=== PATIENT | female | born 1985 | race Caucasian/White ===

== ENCOUNTER 2020-05-23 19:13 | Emergency (ER) | payer MEDICAID, SELFPAY ==
[2020-05-23 19:37] VITALS: BP 155/98; PULSE 93; RESP 14; TEMP 37.3; O2SAT 97; BMI 33.9
[2020-05-23 19:52] LABS: Basophils % 0.4 %; Eosinophils # 0.2 10^3/uL (0.0-0.8); Eosinophils % 2.4 %; Hematocrit 41.9 % (37.0-47.0); Hemoglobin 13.7 g/dL (11.5-15.3); Lymphocytes # 2.2 10^3/uL (0.8-4.8); Lymphocytes % 30.5 %; Mean Corpuscular HGB Conc 32.7 g/dL (30.0-36.0); Mean Corpuscular Hemoglobin 29.5 pg (28.0-34.0); Mean Corpuscular Volume 90.1 fL (81-99); Monocytes # 0.6 10^3/uL (0.2-0.9); Monocytes % 8.7 %; Neutrophils # 4.13 10^3/uL (1.8-7.7); Neutrophils % 57.9 %; Nucleated Red Blood Cells % 0 %; Platelet Count 229 10^3/cmm (130-400); Red Blood Count 4.65 10^6/uL (4.1-5.3); Red Cell Distribution Width 12.7 % (12.1-15.1); White Blood Count 7.1 10^3/uL (4.0-10.0)
[2020-05-23 20:24] LABS: HCG, Serum Qual Negative (Negative)
[2020-05-23 20:25] LABS: Alanine Aminotransferase 25 U/L (0-33); Albumin Level 4.6 g/dL (3.5-5.2); Alkaline Phosphatase 77 IU/L (35-105); Aspartate Amino Transferase 22 U/L (0-32); Blood Urea Nitrogen 10 mg/dL (6-20); Calcium 9.5 mg/dL (8.5-10.5); Carbon Dioxide 27 mmol/L (22-29); Chloride 102 mmol/L (98-107); Globulin 3.1 g/dL (1.3-4.6); Glomerular Filtration Rate 82.1 mL/min (90-130); Glucose 108 mg/dL (65-115); Lipase 41 U/L (13-60); Osmolality Calculated 286 mOsm/kg (285-295); Sodium 138 mmol/L (136-145); Total Bilirubin 0.2 mg/dL (0.15-1.2); Total Protein 7.7 g/dL (6.6-8.7)
--- NOTE | 2020-05-23 21:32 | ED_ITS ---
HPI - Abdominal Pain General: Chief Complaint: Abdominal Pain Stated Complaint: lower r abd pain Time Seen by Provider: 05/23/20 21:32 Source: patient Mode of arrival: ambulatory Limitations: no limitations History of Present Illness: HPI narrative: Patient comes in today for complaints of right lower quadrant abdominal pain for the last 4 days. Patient denies any fever. Patient has reported some diarrhea. Patient appears well. Patient appears no acute distress. Patient has had a tubal ligation but no other surgeries. Review of Systems General: Reports: 10 or more systems reviewed and unremarkable except in HPI and below GI: Reports: abdominal pain Physical Exam Const: COMMON NORMALS: no acute distress and patient oriented x3 GENERAL APPEARANCE: cooperative HENMT: COMMON NORMALS: normocephalic and Normal external nose present HEAD & SCALP: normal to inspection and normocephalic NOSE: Normal external nose present MOUTH: Normal oral and palatal mucosa present THROAT: posterior oropharynx normal Eye: GENERAL EYE: appearance normal, both eyes and all related structures Neck/C-Spine: COMMON NORMALS: full ROM Chest: COMMONS NORMALS: normal inspection of the chest Resp: COMMON NORMALS: normal respiratory effort EFFORT & INSPECTION: Yes able to speak in complete sentences Cardio: COMMON NORMALS: regular rate and regular rhythm RATE: regular rate RHYTHM: regular rhythm GI: INSPECTION: Yes normal to inspection AUSCULTATION: Yes normoactive bowel sounds PALPATION: Yes Tenderness to palpation present (GI) Details: RLQ : COMMON NORMALS: Yes no CVA tenderness BLADDER/KIDNEY EXAM: Yes no CVA tenderness Back/Pelvis: COMMON NORMALS: no CVA tenderness and thoracic and lumbar spine normal to inspection Extremity: COMMON NORMALS: normal to inspection Neuro: COMMON NORMALS: patient oriented x3 and moves all extremities Psych: COMMON NORMALS: mental status grossly normal and cooperative Skin: COMMON NORMALS: no rashes or lesions noted GENERAL SKIN EXAM: no rashes or lesions noted Course Vital Signs: Vital signs: Vital Signs Temperature 99.1 F 05/23/20 19:37 Pulse Rate 81 05/23/20 22:32 Respiratory Rate 16 05/23/20 22:32 Blood Pressure 143/99 05/23/20 22:32 Pulse Oximetry 97 05/23/20 22:32 MDM - Abdominal Pain MDM Narrative: Medical decision making narrative: Patient comes in with right lower quadrant abdominal pain. On exam patient has some tenderness in the right lower quadrant with palpation. Some McBurney's point tenderness is noted. Bowel sounds are present. Vital signs are normal. Differential diagnosis includes but not limited to appendicitis, ovarian cyst, renal calculi. Laboratory values were unremarkable. Urinalysis was clear. CT scan of the abdomen pelvis noted a normal appendix and no other signs of abnormality. Reviewed exam with patient with recommendations for follow-up and treatment of abdominal pain. Patient reported understanding agreed to plan. Lab Data: Labs: Lab Results 05/23/20 05/23/20 05/23/20 Range/Units 19:44 19:44 19:44 WBC 7.1 (4.0-10.0) 10^3/ uL RBC 4.65 (4.1-5.3) 10^6/u L Hgb 13.7 (11.5-15.3) g/dL Hct 41.9 (37.0-47.0) % MCV 90.1 (81-99) fL MCH 29.5 (28.0-34.0) pg MCHC 32.7 (30.0-36.0) g/dL RDW 12.7 (12.1-15.1) % Plt Count 229 (130-400) 10^3/c mm MPV 11.0 H (7.4-10.4) fL Neut % (Auto) 57.9 % Lymph % (Auto) 30.5 % Towner % (Auto) 8.7 % Eos % (Auto) 2.4 % Baso % (Auto) 0.4 % Neut # (Auto) 4.13 (1.8-7.7) 10^3/u L Lymph # (Auto) 2.2 (0.8-4.8) 10^3/u L Towner # (Auto) 0.6 (0.2-0.9) 10^3/u L Eos # (Auto) 0.2 (0.0-0.8) 10^3/u L Baso # (Auto) 0.0 (0.0-0.1) 10^3/u L Nucleated RBC % (a uto) 0 % Nucleated RBCs # 0.0 /100WBC Sodium 138 (136-145) mmol/L Potassium 4.0 (3.5-5.1) mmol/L Chloride 102 (98-107) mmol/L Carbon Dioxide 27 (22-29) mmol/L Anion Gap 13.0 (5-19) BUN 10 (6-20) mg/dL Creatinine 0.8 (0.5-0.9) mg/dL GFR Calculation 82.1 L (90-130) mL/min Glucose 108 (65-115) mg/dL Calculated Osmolal ity 286 (285-295) mOsm/k g Calcium 9.5 (8.5-10.5) mg/dL Total Bilirubin 0.2 (0.15-1.2) mg/dL AST 22 (0-32) U/L ALT 25 (0-33) U/L Alkaline Phosphata se 77 (35-105) IU/L Total Protein 7.7 (6.6-8.7) g/dL Albumin 4.6 (3.5-5.2) g/dL Globulin 3.1 (1.3-4.6) g/dL Lipase 41 (13-60) U/L HCG, Qual Negative (Negative) Urine Color (Yellow) Urine Appearance (CLEAR) Urine pH (5-7) Ur Specific Gravit y (1.005-1.030) Urine Protein (Negative) Urine Glucose (UA) (Normal) Urine Ketones (Negative) Urine Blood (Negative) Urine Nitrate (Negative) Urine Bilirubin (Negative) Urine Urobilinogen (Negative) mg/dL Ur Leukocyte Angelique ase (Negative) 05/23/20 Range/Units 22:36 WBC (4.0-10.0) 10^3/ uL RBC (4.1-5.3) 10^6/u L Hgb (11.5-15.3) g/dL Hct (37.0-47.0) % MCV (81-99) fL MCH (28.0-34.0) pg MCHC (30.0-36.0) g/dL RDW (12.1-15.1) % Plt Count (130-400) 10^3/c mm MPV (7.4-10.4) fL Neut % (Auto) % Lymph % (Auto) % Towner % (Auto) % Eos % (Auto) % Baso % (Auto) % Neut # (Auto) (1.8-7.7) 10^3/u L Lymph # (Auto) (0.8-4.8) 10^3/u L Towner # (Auto) (0.2-0.9) 10^3/u L Eos # (Auto) (0.0-0.8) 10^3/u L Baso # (Auto) (0.0-0.1) 10^3/u L Nucleated RBC % (a uto) % Nucleated RBCs # /100WBC Sodium (136-145) mmol/L Potassium (3.5-5.1) mmol/L Chloride (98-107) mmol/L Carbon Dioxide (22-29) mmol/L Anion Gap (5-19) BUN (6-20) mg/dL Creatinine (0.5-0.9) mg/dL GFR Calculation (90-130) mL/min Glucose (65-115) mg/dL Calculated Osmolal ity (285-295) mOsm/k g Calcium (8.5-10.5) mg/dL Total Bilirubin (0.15-1.2) mg/dL AST (0-32) U/L ALT (0-33) U/L Alkaline Phosphata se (35-105) IU/L Total Protein (6.6-8.7) g/dL Albumin (3.5-5.2) g/dL Globulin (1.3-4.6) g/dL Lipase (13-60) U/L HCG, Qual (Negative) Urine Color Yellow (Yellow) Urine Appearance Clear (CLEAR) Urine pH 5 (5-7) Ur Specific Gravit y 1.025 (1.005-1.030) Urine Protein Neg (Negative) Urine Glucose (UA) Norm (Normal) Urine Ketones Negative (Negative) Urine Blood Neg (Negative) Urine Nitrate Negative (Negative) Urine Bilirubin Neg (Negative) Urine Urobilinogen 1 H (Negative) mg/dL Ur Leukocyte Angelique ase Negative (Negative) Discharge Plan Discharge Patient Disposition: Home Clinical Impression: Abdominal pain Qualifiers: Abdominal location: right lower quadrant Qualified Code(s): R10.31 - Right lower quadrant pain Condition: Stable Discharge Orders: Discharge Order (Routine); Ordered 05/23/20 Ordered By: Farhat Schulz Referrals: Rosalba Patterson FNP [Primary Care Provider] - Discharge Diet: Usual diet Discharge Activity: Increase activity as tolerated Patient Instructions: Abdominal Pain (ED) Activity Restrictions/Additional Instructions: Drink plenty of fluids. Light diet. Avoid spicy, greasy, and acidic foods. Activity as tolerated. Monitor for fever or blood in vomit or stool. Follow-up with primary care for further evaluation and treatment. Return to the emergency department for new concerns. Coding Level of Care Code ED Certified Pathology Assistant for Eloina Hannon Exam Comprehensive
--- NOTE | 2020-05-23 21:38 | PC.NURSE ---
AT PT BEDSIDE REPORT RECEIVED FROM [facility]. PT IS BEING RESTRAINED. PT WORDS ARE INCOMPREHENSIBLE.
--- NOTE | 2020-05-23 21:41 | PC.NURSE ---
VO TO ADM 150 MG OF KETAMINE VIA IM PER PROVIDER ZAID WITH READ BACK.
[2020-05-23 22:32] VITALS: BP 143/99; PULSE 81; RESP 16; O2SAT 97
--- NOTE | 2020-05-23 22:32 | CTR_ITS ---
PROCEDURE INFORMATION: Exam: CT Abdomen And Pelvis With Contrast Exam date and time: 05/23/2020 10:52 PM Age: 35 years old Clinical indication: Other: Diarrhea; Abdominal pain; Localized; Right lower quadrant (rlq); Additional info: Rlq pain TECHNIQUE: Imaging protocol: Computed tomography of the abdomen and pelvis with intravenous contrast. Radiation optimization: All CT scans at this facility use at least one of these dose optimization techniques: automated exposure control; mA and/or kV adjustment per patient size (includes targeted exams where dose is matched to clinical indication); or iterative reconstruction. Contrast material: OMNI 300; Contrast volume: 95 ml; Contrast route: INTRAVENOUS (IV); COMPARISON: CT abdomen pelvis w con* [id number] 07/17/2019 12:42 PM RADIATION DOSE METRICS: Total DLP (mGy-cm): 1382.41 FINDINGS: Lungs: The lung bases are clear. Liver: Unremarkable. Gallbladder and bile ducts: No visible gallstones by CT. Ultrasound would be more sensitive for detecting gallstones, if clinically needed. No biliary tree dilation. Pancreas: Unremarkable. Spleen: Unremarkable. Adrenals: Unremarkable. Kidneys and ureters: Suspect a very small right intrarenal calculus. No significant hydronephrosis of either kidney. No visible ureteral calculus. No perinephric fluid. The kidneys enhance homogeneously. 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 Most of the small bowel is in the right abdomen, and the 3rd portion of the duodenum does not cross the midline into the left upper quadrant. The ascending colon is in the midline, and the cecum is in the left lower quadrant. There are no CT findings to strongly suggest diverticulitis or colitis. Negative CT does not entirely exclude colitis, so follow-up may be helpful, as clinically directed. Appendix: The appendix is visualized and appears normal. The appendix is in the left lower quadrant due to the small bowel malrotation. Intraperitoneal space: No free air, ascites, or bowel distention. Vasculature: No evidence for abdominal aortic aneurysm. Lymph nodes: No retroperitoneal adenopathy. Urinary bladder: Possibly some mild diffuse urinary bladder wall thickening. Evaluation is limited, as the bladder is almost empty. While nonspecific, this could indicate evidence for cystitis. Please correlate clinically. Reproductive: Essentially unremarkable for age. Bones/joints: No significant acute finding. Soft tissues: Very small umbilical hernia, containing only fat. CT/CT abdomen pelvis w con* [id number] IMPRESSION: 1. Normal appendix. 2. Evidence for congenital small bowel malrotation, see above. 3. No free air or bowel distention. No evidence for bowel obstruction. 4. No CT findings to strongly suggest diverticulitis or colitis. 5. Possible urinary bladder wall thickening, see above. 6. Other findings discussed above. Radiation Dose CTDIVOL = (mGy): DLP = 1382.41 (mGy-cm)
--- NOTE | 2020-05-23 22:49 | PC.NURSE ---
patient to CT
[2020-05-23] MEDS: iohexol 300 mg/mL 100 mL Btl IV (22:56)
[2020-05-23 22:59] LABS: Add Urine Microscopic? NO
[2020-05-23 23:03] LABS: Bilirubin Urine Neg (Negative); Blood Urine Neg (Negative); Glucose Urine UA Norm (Normal); Ketones Urine Negative (Negative); Nitrate Urine Negative (Negative); Protein Urine Neg (Negative); Specific Gravity, Urine 1.025 (1.005-1.030); Urine Appearance Clear (CLEAR); Urine Color Yellow (Yellow); pH Urine 5 (5-7)
[2020-05-23 23:04] LABS: Leukocyte Esterase Urine Negative (Negative); Urobilinogen Urine 1 mg/dL (Negative)
[2020-05-24 00:06] VITALS: BP 118/88; PULSE 81; O2SAT 97
[2020-05-24 00:14] VITALS: BP 118/88; PULSE 74; O2SAT 93
== END 2020-05-24 00:16 | disposition home or self-care (01) ==
PROVIDERS: Emergency Provider Nurse Practitioner Family; PCP Nurse Practitioner
DX: R10.31 Right lower quadrant pain (principal)
CPT/HCPCS: 12345; 36415; 74177; 80053; 81003; 83690; 84703; 85025; 99283; Q9967

== ENCOUNTER 2020-09-07 10:01 | Emergency (ER) | payer BC, MEDICAID, SELFPAY ==
[2020-09-07 10:06] VITALS: BP 132/96; PULSE 80; RESP 18; TEMP 36.9; O2SAT 96; BMI 33.9
[2020-09-07 10:10] VITALS: BP 124/87; PULSE 76; RESP 18; O2SAT 96
--- NOTE | 2020-09-07 10:18 | ED_ITS ---
HPI - General Adult General: Chief complaint: General Medical Stated complaint: SEVERE LOWER AB PAIN, VAGINAL BLEEDING/DISCHARGE Time Seen by Provider: 09/07/20 10:07 History of Present Illness: HPI narrative: 35-year-old female patient presents to the emergency department with lower pelvic pain and vaginal pain x 2 weeks. She reports clear vaginal discharge for several weeks. Reports last menstrual period was approximately 2 weeks ago, was heavy then stopped, lasted 3 days. She reports history of tubal ligation, denies fever chills nausea vomiting. She reports 5 years since last Pap smear, does not have a primary care provider, did not take anything for pain prior to arrival. States was at work at the onset of occurrence and was referred to the emergency department for further evaluation. G 4 P 4 L 4 Reports pain reproduced during intercourse. Onset (ago): week(s) (2) Location: genitals Radiation: back Severity: moderate Quality: aching Pain Consistency: constant Associated symptoms: Reports no associated symptoms; Deny chest pain, diaphoresis, dyspnea, headache(s), malaise, nausea, rash, palpitations or vomiting Treatments prior to arrival: none Review of Systems General: Reports: 10 or more systems reviewed and unremarkable except in HPI and below Const: Denies: fever(s), chills, body aches, fatigue, malaise or diaphoresis Eyes: Denies: blurry vision or eye redness ENMT: Denies: throat pain, dental pain or disequilibrium Card: Denies: chest pain, palpitations or irregular heart rhythm Resp: Denies: dyspnea, productive cough, non-productive cough or wheezing GI: Denies: abdominal pain, nausea or vomiting : Reports: vaginal discharge, irregular period, metrorrhagia and pelvic pain; Denies: difficulty voiding, dysuria, urinary urgency, urinary incontinence, hematuria or vaginal dryness Musc: Reports: back pain (with pelvic pain); Denies: neck pain, joint pain or joint stiffness Skin/Breast: Denies: rash or pruritus Neuro: Denies: headache(s), weakness in extremities or behavioral changes Psych: Denies: anxiety or depression Kameron/Lymph: Denies: easy bruising Physical Exam Const: COMMON NORMALS: no acute distress, patient oriented x3, healthy appearing and alert GENERAL APPEARANCE: cooperative, comfortable and well hydrated HENMT: COMMON NORMALS: normocephalic, Normal external nose present and moist oral mucous membranes HEAD & SCALP: normocephalic NOSE: Normal external nose present Eye: COMMON NORMALS: Equal, round and reactive pupils present and EOMs intact bilaterally GENERAL EYE: appearance normal, both eyes and all related structures PUPIL: Yes Equal, round and reactive pupils present Neck/C-Spine: COMMON NORMALS: full ROM and no lymphadenopathy GENERAL: Yes normal visual inspection and Yes trachea midline CERVICAL SPINE: Yes cervical ROM normal Lymph: LYMPHATIC: no lymphadenopathy noted Chest: COMMONS NORMALS: normal inspection of the chest Resp: COMMON NORMALS: normal respiratory effort and clear to auscultation bilaterally AUSCULTATION: clear to auscultation bilaterally Cardio: COMMON NORMALS: regular rhythm, S1 normal heart sound present and S2 normal heart sound present RHYTHM: regular rhythm HEART SOUNDS: S1 normal heart sound present and S2 normal heart sound present GI: COMMON NORMALS: Soft to palpation and non-tender INSPECTION: Yes normal to inspection PALPATION: Yes Soft to palpation : COMMON NORMALS: Yes no CVA tenderness, Yes normal external appearance, Yes normal appearance of the vagina and Yes normal appearance of the cervix BLADDER/KIDNEY EXAM: Yes no CVA tenderness EXTERNAL FEMALE EXAM: Yes normal appearance of the urethra, No Inguinal lymphadenopathy, No externally tender and No external swelling SPECULUM EXAM - VAGINA: No laceration, No lesion, No vaginal bleeding, No swelling, Yes tenderness Lateral vaginal tenderness details: bilateral, No Vaginal polyp present, No Vaginal discharge present and No Vaginal ecchymosis SPECULUM EXAM - CERVIX: No Tissue present in the cervical os, No mucoid cervix, No Abnormal cervical discharge present and Yes Cervical tenderness present BIMANUAL EXAM - VAGINA & UTERUS: Yes cervical motion tenderness, Yes Cervical tenderness present, Yes uterine size normal, Yes Uterine tenderness bilaterally and Yes other (tenderness over the bladder) BIMANUAL EXAM - ADNEXA, OTHER: Yes normal OB/EXTERNAL & SPECULUM: No vaginal bleeding Back/Pelvis: COMMON NORMALS: no CVA tenderness, thoracic and lumbar spine normal to inspection, no thoracic nor lumbar tenderness, thoraco-lumbar ROM normal and straight leg raise negative bilaterally Extremity: COMMON NORMALS: normal to inspection and capillary refill normal Neuro: COMMON NORMALS: patient oriented x3 and no focal motor deficits SENSORIUM/ORIENTATION: Yes alert Psych: COMMON NORMALS: mental status grossly normal, Normal thought process present and cooperative ACTIVITY/MOTOR BEHAVIOR: Yes appropriate eye contact THOUGHT PROCESS: Normal thought process present Skin: COMMON NORMALS: no rashes or lesions noted and turgor normal GENERAL SKIN EXAM: no rashes or lesions noted and turgor normal Course Vital Signs: Vital signs: Vital Signs Temperature 97.6 F 09/07/20 11:35 Pulse Rate 71 09/07/20 11:35 Respiratory Rate 18 09/07/20 11:35 Blood Pressure 144/81 09/07/20 11:35 Pulse Oximetry 96 09/07/20 11:35 MDM - General Adult MDM Narrative: Medical decision making narrative: 35-year-old female patient presents to the emergency department with vaginal pain and lower pelvic pain. 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 Advised to return to the emergency department if she developed worsening/concerning symptoms; ibuprofen administered with improvement of pain. Lab Data: Labs: Lab Results 09/07/20 09/07/20 Range/Units 11:10 11:10 Urine Color Straw (Yellow) Urine Appearance Clear (CLEAR) Urine pH 7 (5-7) Ur Specific Gravit y 1.005 (1.005-1.030) Urine Protein Neg (Negative) Urine Glucose (UA) Norm (Normal) Urine Ketones Negative (Negative) Urine Blood 2+ H (Negative) Urine Nitrate Negative (Negative) Urine Bilirubin Neg (Negative) Urine Urobilinogen Norm (Negative) mg/dL Ur Leukocyte Angelique ase Negative (Negative) Urine RBC 5-10 H (0-2) /hpf Urine WBC None (0-5) /hpf Ur Squamous Epith Cells 0-4 H (0-5) /hpf Amorphous Sediment Not Reportable Urine Bacteria Trace (NONE) /hpf Urine HCG, Qual Negative (Negative) Discharge Plan Discharge Patient Disposition: Home Clinical Impression: Pelvic pain UTI (urinary tract infection) Qualifiers: Urinary tract infection type: acute cystitis Hematuria presence: without hematuria Qualified Code(s): N30.00 - Acute cystitis without hematuria Condition: Stable Prescriptions: New Macrodantin 100 mg capsule 100 mg PO BID 5 Days Qty: 10 RF: 0 IBU 800 mg tablet 800 mg PO TID PRN (Reason: pain) Qty: 30 RF: 0 Discharge Orders: Discharge ED (Routine); Ordered 09/07/20 Ordered By: Jaylyn Motta Referrals: Rosalba Patterson FNP [Primary Care Provider] - Discharge Diet: Advance as tolerated Discharge Activity: Limit activity as instructed Patient Instructions: Urinary Tract Infection in Women (ED), Pelvic Pain Activity Restrictions/Additional Instructions: take antibiotic until all gone, even if better social science manager will 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
[2020-09-07] MEDS: ibuprofen 800 mg tablet PO (11:12)
[2020-09-07 11:24] VITALS: BP 144/81; PULSE 79; RESP 18; O2SAT 96
[2020-09-07 11:35] VITALS: BP 144/81; PULSE 71; RESP 18; TEMP 36.4; O2SAT 96
[2020-09-07 11:49] LABS: Add Urine Microscopic? YES; Bilirubin Urine Neg (Negative); Blood Urine 2+ (Negative); Glucose Urine UA Norm (Normal); Ketones Urine Negative (Negative); Leukocyte Esterase Urine Negative (Negative); Nitrate Urine Negative (Negative); Protein Urine Neg (Negative); Specific Gravity, Urine 1.005 (1.005-1.030); Urine Appearance Clear (CLEAR); Urine Color Straw (Yellow); Urobilinogen Urine Norm (Negative); pH Urine 7 (5-7)
[2020-09-07 11:50] LABS: Add Urine Culture? No; Bacteria Urine TRACE /hpf; Squamous Epithelial Cell Urine 0-4 /hpf (0-5)
--- NOTE | 2020-09-07 15:43 | DCPLANNER ---
manager combination had message to schedule a follow up appointment for patient with [facility]. manager combination called the [facility], spoke with Lisa, gave clinic patients information. manager combination was told that patients information would be printed and reviewed. Clinic will call patient with appointment information.
--- NOTE | 2020-09-09 11:19 | DCPLANNER ---
Patient has a follow up appointment scheduled for Saturday, September 09, 2020 at 11:30 with [facility]. Clinic will call patient with appointment information.
--- NOTE | 2020-09-27 07:47 | DCPLANNER ---
Patient had a follow up appointment scheduled for 09.09.20 with [facility] - patient did attend appointment.
== END 2020-09-07 12:15 | disposition home or self-care (01) ==
PROVIDERS: Emergency Provider Nurse Practitioner Family; PCP Nurse Practitioner
DX: N30.00 Acute cystitis without hematuria (principal)
CPT/HCPCS: 12345; 81001; 81025; 87210; 87491; 87591; 87661; 99281; 99283

== ENCOUNTER → 2020-12-13 10:35 | Outpatient (BNVA) | payer BC, MEDICAID, SELFPAY | PROVIDERS: PCP Nurse Practitioner; Visit Provider Nurse Practitioner Women's Health | DX: Z01.419 Encounter for gynecological examination (general) (routine) without abnormal findings (principal); J30.2 Other seasonal allergic rhinitis; N92.6 Irregular menstruation, unspecified | CPT/HCPCS: 84439; 84443; 88175 ==

== ENCOUNTER 2021-10-11 23:23 | Emergency (ER) | payer BC, MEDICAID, SELFPAY ==
--- NOTE | 2021-10-11 23:26 | W.ED.ABDPA2 ---
HPI - Abdominal Pain General: Chief Complaint: Abdominal Pain Stated Complaint: RLQ ABD Time Seen by Provider: 10/11/21 23:26 History of Present Illness: 36-year-old female comes in today with complaints of right-sided abdominal pain. Patient reports she was seen last night and was evaluated for similar pain and discomfort at [facility]. CT scan was done at that time and did not see any signs of acute infection or renal stone. Patient reports pain is worsened throughout the day and she has radiating pain into the right lower abdomen now. Patient reports nausea and vomiting. Patient reports chills but no fever. Patient appears mildly unwell but not toxic. Patient appears in moderate pain. Patient is presently on menstrual cycle Associated Symptoms: Reports nausea Review of Systems General: Reports: 10 or more systems reviewed and unremarkable except in HPI and below GI: Reports: abdominal pain and nausea [facility] ED PFSH: Medical History (Updated 10/12/21 @ 00:42 by EFRAÍN Anderson) Kidney stone on right side No pertinent past medical history neghx: htn,dm,thyroid,dvt/pe [facility]CP[facility] Surgical History Hx of tubal ligation (2015) Family History Family/Other Colon cancer Maternal Uncle--dx age unknown Mother Diabetes Brother Diabetes Hypertension Father Heart disease Denies family history of Ovarian cancer Hypercholesteremia Breast cancer Uterine cancer Thyroid disease Stroke Social History Additional social history: Was a smoker about 15 years ago, smoked 1/2 PPD for 1 year. Denies any alcohol use. Denies any history of drug use. Physical Exam Const: COMMON NORMALS: alert HENMT: COMMON NORMALS: normocephalic HEAD & SCALP: normocephalic Neck/C-Spine: COMMON NORMALS: full ROM Resp: COMMON NORMALS: normal respiratory effort and clear to auscultation bilaterally AUSCULTATION: clear to auscultation bilaterally Cardio: COMMON NORMALS: regular rate and regular rhythm RATE: regular rate RHYTHM: regular rhythm GI: AUSCULTATION: Yes normoactive bowel sounds PALPATION: Yes Tenderness to palpation present (GI) Details: RUQ, No Guarding due to palpation present (GI), Yes Rebound tenderness present and Yes Other GI palpation findings present (distended, positive psoas sign) : BLADDER/KIDNEY EXAM: Yes CVA tenderness on the right Back/Pelvis: GENERAL BACK: Yes CVA tenderness Extremity: COMMON NORMALS: normal to inspection and full ROM Neuro: SENSORIUM/ORIENTATION: Yes alert Psych: COMMON NORMALS: cooperative Skin: COMMON NORMALS: no rashes or lesions noted GENERAL SKIN EXAM: no rashes or lesions noted Course Vital Signs: Vital signs: Vital Signs Temperature 98.7 F 10/11/21 23:28 Pulse Rate 82 10/11/21 23:28 Respiratory Rate 17 10/12/21 00:02 Blood Pressure 136/85 10/11/21 23:28 Pulse Oximetry 97 10/11/21 23:28 MDM - Abdominal Pain Medical Decision Making 36-year-old female comes in with nausea and vomiting and abdominal discomfort. Patient has been ill for the last 2 days. Patient was seen in the emergency department at [facility] yesterday and they believe that maybe she had a ovarian cyst. Patient reports pain has radiated around into her right lower quadrant and she is concerned for appendicitis. On exam abdomen is tender in the right upper quadrant and lower quadrant with some mild distention. Bowel sounds are hyperactive. Patient is reporting nausea. Differential diagnosis includes but not limited to appendicitis, gastroenteritis, cholecystitis. Laboratory values were unremarkable. Urinalysis had a large amount of red blood cells but patient was on her period at this time. CT scan of the abdomen pelvis with contrast showed no sign of abdominal infection or hydronephrosis suggesting renal stone. Patient was given 1 L of IV fluid, 4 mg of Zofran, and 2 mg of morphine with resolution of pain. Patient was able to tolerate oral fluids. I suspect patient probably has a viral syndrome causing her nausea and vomiting and abdominal pain. I recommended patient use Zofran for nausea and vomiting may use some hydrocodone for severe pain. Encourage plenty of fluids and follow-up with primary care in 2 to 3 days. Patient should return to the ER for worsening symptoms. Patient reported understanding of care plan and need for follow-up or return to the ER. Lab Data : 10/11/21 23:30 10/11/21 23:30 Labs/Radiology: Radiology Impressions Abdomen/Pelvis CT 10/11/21 23:31 IMPRESSION: 1. Negative for acute abdominopelvic pathology. 2. Congenital malrotation of the bowel. Laboratory Results WBC 7.3 10^3/uL (4.0-10.0) 10/11/21 23:30 RBC 4.55 10^6/uL (4.1-5.3) 10/11/21: Hgb 13.1 g/dL (11.5-15.3) 10/11/21: Hct 40.5 % (37.0-47.0) 10/11/21: MCV 89.0 fl (81-99) 10/11/21: MCH 28.8 pg (28.0-34.0) 10/11/21: MCHC 32.3 g/dL (30.0-36.0) 10/11/21: RDW 13.1 % (12.1-15.1) 10/11/21: Plt Count 271 10^3/cmm (130-400) 10/11/21: MPV 11.4 fL (7.4-10.4) H 10/11/21: Neut % (Auto) 51.7 % 10/11/21: Lymph % (Auto) 40.8 % 10/11/21: [place] % (Auto) 6.3 % 10/11/21: Eos % (Auto) 0.8 % 10/11/21: Baso % (Auto) 0.3 % 10/11/21: Neut # (Auto) 3.77 10^3/uL (1.8-7.7) 10/11/21: Lymph # (Auto) 3.0 10^3/uL (0.8-4.8) 10/11/21: [place] # (Auto) 0.5 10^3/uL (0.2-0.9) 10/11/21 23: Eos # (Auto) 0.1 10^3/uL (0.0-0.8) 10/11/21: Baso # (Auto) 0.0 10^3/uL (0.0-0.1) 10/11/21: Nucleated RBC % (auto) 0 % 10/11/21: Nucleated RBCs # 0.0 /100WBC 10/11/21: Sodium 141 mmol/L (136-145) 10/11/21: Potassium 3.6 mmol/L (3.5-5.1) 10/11/21: Chloride 103 mmol/L (98-107) 10/11/21: Carbon Dioxide 27 mmol/L (22-29) 10/11/21: Anion Gap 14.6 (5-19) 10/11/21: BUN 9 mg/dL (6-20) 10/11/21: Creatinine 0.9 mg/dL (0.5-0.9) 10/11/21 GFR Calculation 71.3 mL/min (90-130) L 10/11/21: Glucose 102 mg/dL (65-115) 10/11/21: Calculated Osmolality 291 mOsm/kg (285-295) 10/11/21: Calcium 9.8 mg/dL (8.5-10.5) 10/11/21: Total Bilirubin 0.3 mg/dL (0.15-1.2) 10/11/21: AST 14 U/L (0-32) 10/11/21: ALT 14 U/L (0-33) 10/11/21: Alkaline Phosphatase 71 IU/L (35-105) 10/11/21: Total Protein 7.5 g/dL (6.6-8.7) 10/11/21: Albumin 4.7 g/dL (3.5-5.2) 10/11/21: Globulin 2.8 g/dL (1.3-4.6) 10/11/21: Lipase 35 U/L (13-60) 10/11/21 23: HCG, Qual Negative (Negative) 10/11/21: Urine Color Yellow (Yellow) 10/12/21 00:06 Urine Appearance Clear (CLEAR) 10/12/21 00:06 Urine pH 5 (5-7) 10/12/21 00:06 Ur Specific [place] 1.015 (1.005-1.030) 10/12/21 00:06 Urine Protein Trace (Negative) 10/12/21 00:06 Urine Glucose (UA) Norm (Normal) 10/12/21 00:06 Urine Ketones Negative (Negative) 10/12/21 00:06 Urine Blood 3+ (Negative) H 10/12/21 00:06 Urine Nitrate Negative (Negative) 10/12/21 00:06 Urine Bilirubin Neg (Negative) 10/12/21 00:06 Urine Urobilinogen Norm mg/dL (Negative) 10/12/21 00:06 Ur Leukocyte Esterase Negative (Negative) 10/12/21 00:06 Urine RBC >100 /hpf (0-2) H 10/12/21 00:06 Urine WBC 0-4 /hpf (0-5) H 10/12/21 00:06 Ur Squamous Epith Cells 0-4 /hpf (0-5) H 10/12/21 00:06 Amorphous Sediment Not Reportable 10/12/21 00:06 Urine Bacteria Trace /hpf (NONE) 10/12/21 00:06 Urine Mucus 1+ /hpf 10/12/21 00:06 Discharge Plan Discharge Patient Disposition: Home Clinical Impression: Viral syndrome Abdominal pain Qualifiers: Abdominal location: right upper quadrant Qualified Code(s): R10.11 - Right upper quadrant pain Condition: Stable Prescriptions: New ondansetron 4 mg tablet,disintegrating 4 mg PO Q8H PRN (Reason: nausea and vomiting) Qty: 7 0RF hydrocodone-acetaminophen 5-325 mg tablet 1 tab PO Q8H PRN (Reason: pain (scale score 7-10)) Qty: 7 0RF No Action loratadine [Claritin] 10 mg tablet 10 mg PO DAILY PRN (Reason: allergy symptoms) Qty: 30 11RF Discharge Orders: Discharge ED (Routine); Ordered 10/12/21 Ordered By: Farhat Schulz Referrals: Chelsi Robertsno FNP [Primary Care Provider] - Discharge Diet: Advance as tolerated Discharge Activity: Increase activity as tolerated Patient Instructions: Abdominal Pain (ED), Opioid Safety Activity Restrictions/Additional Instructions: Start with a clear liquid diet. Drink plenty of water and fluids. Use ondansetron as needed for nausea. Monitor for fever greater than 100.4. Use acetaminophen to control pain, use hydrocodone for breakthrough pain. Follow-up with primary care in 3 days for recheck. Return to ER for worsening symptoms such as high fever, blood in vomit or stool, or uncontrolled vomiting. Coding Level of Care Code ED [employer] for [employer] F[employer] Exam Comprehensive
[2021-10-11 23:28] VITALS: BP 136/85; PULSE 82; RESP 18; TEMP 37.1; O2SAT 97; BMI 33.3
--- NOTE | 2021-10-11 23:31 | CTR_ITS ---
PROCEDURE INFORMATION: Exam: CT Abdomen And Pelvis With Contrast Exam date and time: 10/11/2021 11:31 PM Age: 36 years old Clinical indication: Abdominal pain; Rebound pain; Right lower quadrant (rlq); Prior surgery; Surgery date: 6+ months; Surgery type: Tubal ligation; Patient HX: Rlq pain x2 days with rebound tenderness; Additional info: Right abd pain, R/O abd infection TECHNIQUE: Imaging protocol: Computed tomography of the abdomen and pelvis with contrast. Radiation optimization: All CT scans at this facility use at least one of these dose optimization techniques: automated exposure control; mA and/or kV adjustment per patient size (includes targeted exams where dose is matched to clinical indication); or iterative reconstruction. Contrast material: OMNI 300; Contrast volume: 95 ml; Contrast route: INTRAVENOUS (IV); COMPARISON: CT abdomen pelvis w con* [id number] 05/23/2020 10:48 PM RADIATION DOSE METRICS: Total DLP (mGy-cm): 1998. FINDINGS: Liver: Normal. No mass. Gallbladder and bile ducts: Normal. No calcified stones. No ductal dilation. Pancreas: Normal. No ductal dilation. Spleen: Normal. No splenomegaly. Adrenal glands: Normal. No mass. Kidneys and ureters: Normal. No hydronephrosis. Stomach and bowel: Malrotation of the bowel. Duodenal jejunal junction does not cross midline. Small bowel in the right-side of the abdomen. Large bowel on the left side of the abdomen. No inflammatory bowel wall thickening. No evidence of obstruction or perforation. Appendix: Normal appendix. Intraperitoneal space: Unremarkable. No free air. No significant fluid collection. Vasculature: Unremarkable. No abdominal aortic aneurysm. Lymph nodes: Unremarkable. No enlarged lymph nodes. Urinary bladder: Unremarkable as visualized. Reproductive: Unremarkable as visualized. Bones/joints: Unremarkable. No acute fracture. Soft tissues: Unremarkable. CT/CT abdomen pelvis w con* [id number] IMPRESSION: 1. Negative for acute abdominopelvic pathology. 2. Congenital malrotation of the bowel.
[2021-10-11 23:40] LABS: Basophils % 0.3 %; Eosinophils # 0.1 10^3/uL (0.0-0.8); Eosinophils % 0.8 %; Hematocrit 40.5 % (37.0-47.0); Hemoglobin 13.1 g/dL (11.5-15.3); Lymphocytes % 40.8 %; Mean Corpuscular HGB Conc 32.3 g/dL (30.0-36.0); Mean Corpuscular Hemoglobin 28.8 pg (28.0-34.0); Mean Platelet Volume 11.4 fL (7.4-10.4); Monocytes # 0.5 10^3/uL (0.2-0.9); Monocytes % 6.3 %; Neutrophils # 3.77 10^3/uL (1.8-7.7); Neutrophils % 51.7 %; Nucleated Red Blood Cells % 0 %; Platelet Count 271 10^3/cmm (130-400); Red Blood Count 4.55 10^6/uL (4.1-5.3); Red Cell Distribution Width 13.1 % (12.1-15.1); White Blood Count 7.3 10^3/uL (4.0-10.0)
[2021-10-11 23:57] LABS: HCG, Serum Qual Negative (Negative)
[2021-10-12 00:02] VITALS: RESP 17
[2021-10-12] MEDS: ketorolac 30 mg/mL INJ 15 MG IVP (00:02)
[2021-10-12] MEDS: morphine 4 mg/mL SDV 1 mL 2 MG IVP (00:02)
[2021-10-12 00:06] LABS: Alanine Aminotransferase 14 U/L (0-33); Albumin Level 4.7 g/dL (3.5-5.2); Alkaline Phosphatase 71 IU/L (35-105); Anion Gap 14.6 (5-19); Aspartate Amino Transferase 14 U/L (0-32); Blood Urea Nitrogen 9 mg/dL (6-20); Calcium 9.8 mg/dL (8.5-10.5); Carbon Dioxide 27 mmol/L (22-29); Chloride 103 mmol/L (98-107); Globulin 2.8 g/dL (1.3-4.6); Glomerular Filtration Rate 71.3 mL/min (90-130); Glucose 102 mg/dL (65-115); Lipase 35 U/L (13-60); Osmolality Calculated 291 mOsm/kg (285-295); Potassium 3.6 mmol/L (3.5-5.1); Sodium 141 mmol/L (136-145); Total Bilirubin 0.3 mg/dL (0.15-1.2); Total Protein 7.5 g/dL (6.6-8.7)
[2021-10-12 00:37] LABS: Add Urine Microscopic? YES; Bilirubin Urine Neg (Negative); Blood Urine 3+ (Negative); Glucose Urine UA Norm (Normal); Ketones Urine Negative (Negative); Leukocyte Esterase Urine Negative (Negative); Nitrate Urine Negative (Negative); Protein Urine Trace (Negative); Specific Gravity, Urine 1.015 (1.005-1.030); Urine Appearance Clear (CLEAR); Urine Color Yellow (Yellow); Urobilinogen Urine Norm (Negative); pH Urine 5 (5-7)
[2021-10-12 00:38] LABS: Add Urine Culture? Yes; Bacteria Urine TRACE /hpf; Mucus Urine 1+ /hpf; RBC Urine >100 /hpf (0-2); Squamous Epithelial Cell Urine 0-4 /hpf (0-5); WBC Urine 0-4 /hpf (0-5)
== END 2021-10-12 00:59 | disposition home or self-care (01) ==
PROVIDERS: Emergency Provider Nurse Practitioner Family; PCP Nurse Practitioner Family
DX: R10.11 Right upper quadrant pain (principal); B34.9 Viral infection, unspecified; Z87.891 Personal history of nicotine dependence
CPT/HCPCS: 74177; 80053; 81001; 83690; 84703; 85025; 87077; 87086; 87186; 96374; 96375; 99283; J1885; J2270; Q9967

== ENCOUNTER → 2021-10-25 08:13 | Outpatient (BNVA) | payer BC, MEDICAID, SELFPAY | PROVIDERS: PCP Nurse Practitioner Family; Visit Provider Psychiatry & Neurology Psychiatry | DX: F33.1 Major depressive disorder, recurrent, moderate (principal) | CPT/HCPCS: 99204 ==

== ENCOUNTER → 2021-12-20 09:59 | Outpatient (BNVA) | payer BC, MEDICAID, SELFPAY | PROVIDERS: PCP Nurse Practitioner Family; Visit Provider Psychiatry & Neurology Psychiatry | DX: F33.1 Major depressive disorder, recurrent, moderate (principal) | CPT/HCPCS: 99214 ==

== ENCOUNTER 2022-01-05 07:23 | Emergency (ER) | payer BC, MEDICAID, SELFPAY ==
[2022-01-05 07:44] VITALS: BP 125/94; PULSE 94; RESP 16; TEMP 36.8; O2SAT 97; BMI 32.5
--- NOTE | 2022-01-05 07:50 | PC.NURSE ---
Patient has medical history of asthma, bipolar, anxiety, and depression.
--- NOTE | 2022-01-05 07:54 | XR_ITS ---
WS: [id number] PORTABLE CHEST HISTORY: cough COMPARISON: 03/20/2019 Lungs are clear and well expanded. No pleural effusion or pneumothorax. Cardiac size: Normal. Mediastinum/Aorta: Normal mediastinum. No osseous abnormality seen. XR/XR chest 1V portable [id number] IMPRESSION: Unremarkable portable chest.
--- NOTE | 2022-01-05 07:55 | ED_ITS ---
Documented by User: GIANNA Thakur 01/05/22 11:01 HPI - General Adult General: Chief complaint: General Medical Stated complaint: Vomiting and head ache after being in the heat Time Seen by Provider: 01/05/22 07:35 History of Present Illness: Patient is a 36-year-old female comes to the ED with nausea and vomiting. Patient says her symptoms started last night. She reports having a cough that is dry and nonproductive along with body aches, headache and nausea and vomiting. 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 She feels dehydrated and very thirsty. Yesterday at work as a public relations officer and a couple people's houses they did not have AC and her car also did not have AC so she thinks she might of gotten overheated and that could be causing her symptoms. She was sweating a lot yesterday. Denies any fevers, ear pain, nasal congestion or drainage, sore throat, bladder or bowel symptoms. Associated symptoms: Reports headache(s), nausea and vomiting; Deny chest pain, dyspnea, rash or palpitations Review of Systems Const: Reports: body aches; Denies: fever(s), chills or fatigue Eyes: Denies: change in vision or eye discomfort ENMT: Denies: throat pain, odynophagia, nasal discharge or nasal congestion Card: Denies: chest pain, palpitations, edema, swelling of feet/ankles, dyspnea on exertion or orthopnea Resp: Reports: non-productive cough; Denies: dyspnea or productive cough GI: Reports: nausea and vomiting; Denies: abdominal pain, diarrhea, constipation or hematochezia : Denies: flank pain, dysuria or hematuria Musc: Denies: neck pain, back pain or extremity swelling Skin/Breast: Denies: rash or new lesions Neuro: Reports: headache(s); Denies: numbness in extremities or weakness in extremities PFS ED PFSH: Medical History Kidney stone on right side No pertinent past medical history neghx: htn,dm,thyroid,dvt/pe [facility] Surgical History Hx of tubal ligation (2014) Family History Family/Other Colon cancer Maternal Uncle--dx age unknown Mother Diabetes Brother Diabetes Hypertension Father Heart disease Denies family history of Ovarian cancer Hypercholesteremia Breast cancer Uterine cancer Thyroid disease Stroke Social History Smoking and tobacco status: former smoker Quit status (tobacco): has quit using tobacco Year quit tobacco: 16 Second hand smoke exposure: Yes Additional social history: Was a smoker about 15 years ago, smoked 1/2 PPD for 1 year. Denies any alcohol use. Denies any history of drug use. Physical Exam Const: COMMON NORMALS: patient oriented x3 and alert GENERAL APPEARANCE: cooperative and comfortable HENMT: COMMON NORMALS: normocephalic HEAD & SCALP: normocephalic MOUTH: Normal oral and palatal mucosa present THROAT: posterior oropharynx normal and uvula midline Neck/C-Spine: COMMON NORMALS: supple GENERAL: Yes normal visual inspection Resp: COMMON NORMALS: normal respiratory effort, No retractions, No use of accessory muscles and clear to auscultation bilaterally AUSCULTATION: clear to auscultation bilaterally Cardio: COMMON NORMALS: regular rate, regular rhythm, S1 normal heart sound present, S2 normal heart sound present, No gallops present (Cardio), No clicks present (Cardio), No murmurs present (Cardio) and Peripheral pulses 2+ throughout RATE: regular rate RHYTHM: regular rhythm HEART SOUNDS: S1 normal heart sound present and S2 normal heart sound present PERIPHERAL PULSES: Peripheral pulses 2+ throughout GI: COMMON NORMALS: Normal to inspection, nondistended, normoactive bowel s ounds present, Soft to palpation, non-tender and no masses PALPATION: Yes Soft to palpation : COMMON NORMALS: Yes no CVA tenderness BLADDER/KIDNEY EXAM: Yes no CVA tenderness Back/Pelvis: COMMON NORMALS: no CVA tenderness Extremity: COMMON NORMALS: normal to inspection Neuro: COMMON NORMALS: patient oriented x3 and moves all extremities SENSORIUM/ORIENTATION: Yes alert Skin: GENERAL SKIN EXAM: dry skin Course Vital Signs: Vital signs: Vital Signs Temperature 98.2 F 01/05/22 07:44 Pulse Rate 94 01/05/22 07:44 Respiratory Rate 16 01/05/22 07:44 Blood Pressure 125/94 05/13/22 07:44 Pulse Oximetry 97 01/05/22 07:44 MDM - General Adult Medical Decision Making Patient is a 36-year-old female comes to the ED with nausea vomiting and headache. 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 She thinks she got over heated and started developing symptoms of nausea vomiting with a headache last night. Vitals are stable. Exam is benign. Chest x-ray showed no acute findings. Labs were all unremarkable. COVID and influenza test are pending, but low suspicion for that being the cause. Patient was given 1 L of IV fluids and Zofran and Toradol and her symptoms improved greatly. She is able to keep p.o. fluids down here in the ED. Patient stable for discharge home diagnosed with heat exhaustion. She was sent home with a prescription for Zofran as needed for nausea. Told to follow- up with her PCP in the next week for reevaluation. Return ED precautions given. Patient understood agree with plan. Lab Data I reviewed the patient's lab results. : 01/05/22 08:33 01/05/22 08:33 Radiology Impressions Chest X-Ray 01/05/22 07:54 IMPRESSION: Unremarkable portable chest. Laboratory Results WBC 5.8 10^3/uL (4.0-10.0) 01/05/22 08:33 RBC 4.77 10^6/uL (4.1-5.3) 01/05/22 08:33 Hgb 13.9 g/dL (11.5-15.3) 01/05/22 08:33 Hct 42.0 % (37.0-47.0) 01/05/22 08:33 MCV 88.1 fl (81-99) 01/05/22 08:33 MCH 29.1 pg (28.0-34.0) 01/05/22 08:33 MCHC 33.1 g/dL (30.0-36.0) 01/05/22 08:33 RDW 13.0 % (12.1-15.1) 01/05/22 08:33 Plt Count 279 10^3/cmm (130-400) 01/05/22 08:33 MPV 10.9 fL (7.4-10.4) H 01/05/22 08:33 Neut % (Auto) 53.0 % 01/05/22 08:33 Lymph % (Auto) 38.5 % 01/05/22 08:33 Wright % (Auto) 7.6 % 01/05/22 08:33 Eos % (Auto) 0.2 % 01/05/22 08:33 Baso % (Auto) 0.5 % 01/05/22 08:33 Neut # (Auto) 3.07 10^3/uL (1.8-7.7) 01/05/22 08:33 Lymph # (Auto) 2.2 10^3/uL (0.8-4.8) 01/05/22 08:33 Wright # (Auto) 0.4 10^3/uL (0.2-0.9) 01/05/22 08:33 Eos # (Auto) 0.0 10^3/uL (0.0-0.8) 01/05/22 08:33 Baso # (Auto) 0.0 10^3/uL (0.0-0.1) 01/05/22 08:33 Nucleated RBC % (auto) 0 % 01/05/22 08:33 Nucleated RBCs # 0.0 /100WBC 01/05/22 08:33 Sodium 139 mmol/L (136-145) 01/05/22 08:33 Potassium 3.9 mmol/L (3.5-5.1) 01/05/22 08:33 Chloride 102 mmol/L (98-107) 01/05/22 08:33 Carbon Dioxide 27 mmol/L (22-29) 01/05/22 08:33 Anion Gap 13.9 (5-19) 01/05/22 08:33 BUN 9 mg/dL (6-20) 01/05/22 08:33 Creatinine 0.7 mg/dL (0.5-0.9) 01/05/22 08:33 GFR Calculation 95.2 mL/min (90-130) 01/05/22 08:33 Glucose 110 mg/dL (65-115) 01/05/22 08:33 Calculated Osmolality 287 mOsm/kg (285-295) 01/05/22 08:33 Calcium 9.8 mg/dL (8.5-10.5) 01/05/22 08:33 Total Bilirubin 0.4 mg/dL (0.15-1.2) 01/05/22 08:33 AST 15 U/L (0-32) 01/05/22 08:33 ALT 17 U/L (0-33) 01/05/22 08:33 Alkaline Phosphatase 76 IU/L (35-105) 01/05/22 08:33 Total Protein 8.0 g/dL (6.6-8.7) 01/05/22 08:33 Albumin 4.7 g/dL (3.5-5.2) 01/05/22 08:33 Globulin 3.3 g/dL (1.3-4.6) 01/05/22 08:33 Lipase 30 U/L (13-60) 01/05/22 08:33 HCG, Qual Negative (Negative) 01/05/22 08:33 Nasal Influ A H1 2008 PCR Not detected (NOT DETECT) 01/05/22 08:58 Coronavirus 229E (PCR) Not detected (NOT DETECT) 01/05/22 08:58 Influenza A (H1) PCR Not detected (NOT DETECT) 01/05/22 08:58 Influenza A (H3) PCR Not detected (NOT DETECT) 01/05/22 08:58 Influenza Type A (PCR) Not detected (NOT DETECT) 01/05/22 08:58 Influenza Type B (PCR) Not detected (NOT DETECT) 01/05/22 08:58 SARS-CoV-2 (PCR) Not detected (NOT DETECT) 01/05/22 08:58 Discharge Plan Discharge Patient Disposition: Home Clinical Impression: Heat exhaustion Qualifiers: Encounter type: initial encounter Qualified Code(s): T67.5XXA - Heat exhaustion, unspecified, initial encounter Condition: Stable Prescriptions: New ondansetron 4 mg tablet,disintegrating 4 mg PO Q8H Qty: 15 0RF No Action loratadine [Claritin] 10 mg tablet 10 mg PO DAILY PRN (Reason: allergy symptoms) Qty: 30 11RF trazodone 50 mg tablet 100 mg PO .HS PRN (Reason: insomnia) Qty: 60 2RF lamotrigine 100 mg tablet 100 mg PO DAILY Qty: 30 2RF venlafaxine 150 mg capsule,extended release 24hr 150 mg PO DAILY Qty: 30 2RF Rx Instructions: To be taken with 75 mg for total of 225 mg daily. venlafaxine [Effexor XR] 75 mg capsule,extended release 24hr 75 mg PO DAILY Qty: 30 2RF Rx Instructions: to be taken with 150 mg total of 225 mg daily. albuterol sulfate 90 mcg/actuation Hfa Aerosol Inhaler 2 puff INHALATION Q6H PRN (Reason: Shortness Of Breath Or Wheezing) 0RF Discharge Orders: Discharge ED (Routine); Ordered 01/05/22 Ordered By: Blas Rodríguez Referrals: Chelsi Robertson FNP [Primary Care Provider] - Discharge Diet: Regular Discharge Activity: Increase activity as tolerated Patient Instructions: Heat Exhaustion (ED) Activity Restrictions/Additional Instructions: Follow-up with medical provider as directed in the next 5 to 7 days for reevaluation. Your influenza and COVID test are still pending. Call [facility] later today to find out influenza and COVID test results. Take me dications as prescribed. Make sure you drink plenty of fluids and stay hydrated. Return to the ER or your medical provider if condition worsens. Please read and understand discharge instructions. Thank you for choosing [facility] for your healthcare needs today. Please realize this is an emergency room and that we are providing you with a medical screening exam and this may not be complete and all inclusive of all the testing and or work up that you may need to determine your ailment or severity of your illness. It is very important that you follow up as instructed or that you return to the Emergency Department should you have concerns or if your condition changes or worsens in any way. Coding Level of Care Code ED [employer] for [employer] Fwd Exam Comprehensive Documented by User: Jatin Lebron DO 01/08/22 09:56 HPI - General Adult General: Chief complaint: General Medical Stated complaint: Vomiting and head ache after being in the heat Time Seen by Provider: 01/05/22 07:35 PFSH ED PFSH: Medical History Kidney stone on right side No pertinent past medical history neghx: htn,dm,thyroid,dvt/pe [facility] Surgical History Hx of tubal ligation (2015) Family History Family/Other Colon cancer Maternal Uncle--dx age unknown Mother Diabetes Brother Diabetes Hypertension Father Heart disease Denies family history of Ovarian cancer Hypercholesteremia Breast cancer Uterine cancer Thyroid disease Stroke Social History Smoking and tobacco status: former smoker Quit status (tobacco): has quit using tobacco Year quit tobacco: 16 Second hand smoke exposure: Yes Additional social history: Was a smoker about 15 years ago, smoked 1/2 PPD for 1 year. Denies any alcohol use. Denies any history of drug use. Course Vital Signs: Vital signs: Vital Signs Temperature 98.2 F 01/05/22 07:44 Pulse Rate 94 01/05/22 07:44 Respiratory Rate 16 01/05/22 07:44 Blood Pressure 125/94 01/05/22 07:44 Pulse Oximetry 97 01/05/22 07:44 MDM - General Adult Medical Decision Making Patient is a 36-year-old female comes to the ED with nausea vomiting and headache. 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 She thinks she got over heated and started developing symptoms of nausea vomiting with a headache last night. Vitals are stable. Exam is benign. Chest x-ray showed no acute findings. Labs were all unremarkable. COVID and influenza test are pending, but low suspicion for that being the cause. Patient was given 1 L of IV fluids and Zofran and Toradol and her symptoms improved greatly. She is able to keep p.o. fluids down here in the ED. Patient stable for discharge home diagnosed with heat exhaustion. She was sent home with a prescription for Zofran as needed for nausea. Told to follow- up with her PCP in the next week for reevaluation. Return ED precautions given. Patient understood agree with plan. Chart reviewed and patient discussed with midlevel. Agree with assessment and plan. Lab Data : 01/05/22 08:33 01/05/22 08:33 Radiology Impressions Chest X-Ray 01/05/22 07:54 IMPRESSION: Unremarkable portable chest. Laboratory Results WBC 5.8 10^3/uL (4.0-10.0) 01/05/22 08:33 RBC 4.77 10^6/uL (4.1-5.3) 01/05/22 08:33 Hgb 13.9 g/dL (11.5-15.3) 01/05/22 08:33 Hct 42.0 % (37.0-47.0) 01/05/22 08:33 MCV 88.1 fl (81-99) 01/05/22 08:33 MCH 29.1 pg (28.0-34.0) 01/05/22 08:33 MCHC 33.1 g/dL (30.0-36.0) 01/05/22 08:33 RDW 13.0 % (12.1-15.1) 01/05/22 08:33 Plt Count 279 10^3/cmm (130-400) 01/05/22 08:33 MPV 10.9 fL (7.4-10.4) H 01/05/22 08:33 Neut % (Auto) 53.0 % 01/05/22 08:33 Lymph % (Auto) 38.5 % 01/05/22 08:33 Wright % (Auto) 7.6 % 01/05/22 08:33 Eos % (Auto) 0.2 % 01/05/22 08:33 Baso % (Auto) 0.5 % 01/05/22 08:33 Neut # (Auto) 3.07 10^3/uL (1.8-7.7) 01/05/22 08:33 Lymph # (Auto) 2.2 10^3/uL (0.8-4.8) 01/05/22 08:33 Wright # (Auto) 0.4 10^3/uL (0.2-0.9) 01/05/22 08:33 Eos # (Auto) 0.0 10^3/uL (0.0-0.8) 01/05/22 08:33 Baso # (Auto) 0.0 10^3/uL (0.0-0.1) 01/05/22 08:33 Nucleated RBC % (auto) 0 % 01/05/22 08:33 Nucleated RBCs # 0.0 /100WBC 01/05/22 08:33 Sodium 139 mmol/L (136-145) 01/05/22 08:33 Potassium 3.9 mmol/L (3.5-5.1) 01/05/22 08:33 Chloride 102 mmol/L (98-107) 01/05/22 08:33 Carbon Dioxide 27 mmol/L (22-29) 01/05/22 08:33 Anion Gap 13.9 (5-19) 01/05/22 08:33 BUN 9 mg/dL (6-20) 01/05/22 08:33 Creatinine 0.7 mg/dL (0.5-0.9) 01/05/22 08:33 GFR Calculation 95.2 mL/min (90-130) 01/05/22 08:33 Glucose 110 mg/dL (65-115) 01/05/22 08:33 Calculated Osmolality 287 mOsm/kg (285-295) 01/05/22 08:33 Calcium 9.8 mg/dL (8.5-10.5) 01/05/22 08:33 Total Bilirubin 0.4 mg/dL (0.15-1.2) 01/05/22 08:33 AST 15 U/L (0-32) 01/05/22 08:33 ALT 17 U/L (0-33) 01/05/22 08:33 Alkaline Phosphatase 76 IU/L (35-105) 01/05/22 08:33 Total Protein 8.0 g/dL (6.6-8.7) 01/05/22 08:33 Albumin 4.7 g/dL (3.5-5.2) 01/05/22 08:33 Globulin 3.3 g/dL (1.3-4.6) 01/05/22 08:33 Lipase 30 U/L (13-60) 01/05/22 08:33 HCG, Qual Negative (Negative) 01/05/22 08:33 Nasal Influ A H1 2009 PCR Not detected (NOT DETECT) 01/05/22 08:58 Coronavirus 229E (PCR) Not detected (NOT DETECT) 01/05/22 08:58 Influenza A (H1) PCR Not detected (NOT DETECT) 01/05/22 08:58 Influenza A (H3) PCR Not detected (NOT DETECT) 01/05/22 08:58 Influenza Type A (PCR) Not detected (NOT DETECT) 01/05/22 08:58 Influenza Type B (PCR) Not detected (NOT DETECT) 01/05/22 08:58 SARS-CoV-2 (PCR) Not detected (NOT DETECT) 01/05/22 08:58 Discharge Plan Discharge Patient Disposition: Home Clinical Impression: Heat exhaustion Qualifiers: Encounter type: initial encounter Qualified Code(s): T67.5XXA - Heat exhaustion, unspecified, initial encounter Condition: Stable Prescriptions: New ondansetron 4 mg tablet,disintegrating 4 mg PO Q8H Qty: 15 0RF No Action loratadine [Claritin] 10 mg tablet 10 mg PO DAILY PRN (Reason: allergy symptoms) Qty: 30 11RF trazodone 50 mg tablet 100 mg PO .HS PRN (Reason: insomnia) Qty: 60 2RF lamotrigine 100 mg tablet 100 mg PO DAILY Qty: 30 2RF venlafaxine 150 mg capsule,extended release 24hr 150 mg PO DAILY Qty: 30 2RF Rx Instructions: To be taken with 75 mg for total of 225 mg daily. venlafaxine [Effexor XR] 75 mg capsule,extended release 24hr 75 mg PO DAILY Qty: 30 2RF Rx Instructions: to be taken with 150 mg total of 225 mg daily. albuterol sulfate 90 mcg/actuation Hfa Aerosol Inhaler 2 puff INHALATION Q6H PRN (Reason: Shortness Of Breath Or Wheezing) 0RF Discharge Orders: Discharge ED (Routine); Ordered 01/05/22 Ordered By: Blas Rodríguez Referrals: Chelsi Robertson FNP [Primary Care Provider] - Discharge Diet: Regular Discharge Activity: Increase activity as tolerated Patient Instructions: Heat Exhaustion (ED) Activity Restrictions/Additional Instructions: Follow-up with medical provider as directed in the next 5 to 7 days for reevaluation. Your influenza and COVID test are still pending. Call [facility] later today to find out influenza and COVID test results. Take medications as prescribed. Make sure you drink plenty of fluids and stay hydrated. Return to the ER or your medical provider if condition worsens. Please read and understand discharge instructions. Thank you for choosing [facility] for your healthcare needs today. Please realize this is an emergency room and that we are providing you with a medical screening exam and this may not be complete and all inclusive of all the testing and or work up that you may need to determine your ailment or severity of your illness. It is very important that you follow up as instructed or that you return to the Emergency Department should you have concerns or if your condition changes or worsens in any way. Coding Level of Care Code ED [employer] for [place] Fwd Exam Comprehensive
--- NOTE | 2022-01-05 08:16 | PC.NURSE ---
This RN attempted x2 for IV placement, placement was not achieved. This RN notified his nurse.
[2022-01-05 08:38] LABS: Basophils % 0.5 %; Eosinophils % 0.2 %; Hemoglobin 13.9 g/dL (11.5-15.3); Lymphocytes # 2.2 10^3/uL (0.8-4.8); Lymphocytes % 38.5 %; Mean Corpuscular HGB Conc 33.1 g/dL (30.0-36.0); Mean Corpuscular Hemoglobin 29.1 pg (28.0-34.0); Mean Corpuscular Volume 88.1 fl (81-99); Mean Platelet Volume 10.9 fL (7.4-10.4); Monocytes # 0.4 10^3/uL (0.2-0.9); Monocytes % 7.6 %; Neutrophils # 3.07 10^3/uL (1.8-7.7); Nucleated Red Blood Cells % 0 %; Platelet Count 279 10^3/cmm (130-400); Red Blood Count 4.77 10^6/uL (4.1-5.3); White Blood Count 5.8 10^3/uL (4.0-10.0)
[2022-01-05 08:49] LABS: HCG, Serum Qual Negative (Negative)
[2022-01-05] MEDS: sodium chloride 0.9% 1,000 ML 999 ML IV (08:52)
[2022-01-05] MEDS: ondansetron 2 mg/ML SDV 2 mL 4 MG IVP (08:54)
[2022-01-05] MEDS: ketorolac 30 mg/mL INJ IVP (08:55)
[2022-01-05 08:56] LABS: Alanine Aminotransferase 17 U/L (0-33); Albumin Level 4.7 g/dL (3.5-5.2); Alkaline Phosphatase 76 IU/L (35-105); Anion Gap 13.9 (5-19); Aspartate Amino Transferase 15 U/L (0-32); Blood Urea Nitrogen 9 mg/dL (6-20); Calcium 9.8 mg/dL (8.5-10.5); Carbon Dioxide 27 mmol/L (22-29); Chloride 102 mmol/L (98-107); Globulin 3.3 g/dL (1.3-4.6); Glomerular Filtration Rate 95.2 mL/min (90-130); Glucose 110 mg/dL (65-115); Lipase 30 U/L (13-60); Osmolality Calculated 287 mOsm/kg (285-295); Potassium 3.9 mmol/L (3.5-5.1); Sodium 139 mmol/L (136-145); Total Bilirubin 0.4 mg/dL (0.15-1.2)
[2022-01-05 12:49] LABS: Adenovirus Not Detected (NOT DETECT); Chlamydia Pneumoniae Not Detected (NOT DETECT); Coronavirus 229E,HKU1,NL63,OC4 Not Detected (NOT DETECT); Human Metapneumovirus Not Detected (NOT DETECT); Human Rhinovirus/Enterovirus Not Detected (NOT DETECT); Influenza A Not Detected (NOT DETECT); Influenza A H1 Not Detected (NOT DETECT); Influenza A H1-2009 Not Detected (NOT DETECT); Influenza A H3 Not Detected (NOT DETECT); Influenza B Not Detected (NOT DETECT); Mycoplasma Pneumoniae Not Detected (NOT DETECT); Parainfluenza Virus Type 1 Not Detected (NOT DETECT); Parainfluenza Virus Type 2 Not Detected (NOT DETECT); Parainfluenza Virus Type 3 Not Detected (NOT DETECT); Parainfluenza Virus Type 4 Not Detected (NOT DETECT); Respiratory Syncytial Virus A Not Detected (NOT DETECT); Respiratory Syncytial Virus B Not Detected (NOT DETECT); SARS-COV-2 Not Detected (NOT DETECT)
[2022-01-05 13:04] LABS: Results from GENMARK
== END 2022-01-05 10:48 | disposition home or self-care (01) ==
PROVIDERS: Emergency Provider Physician Assistant; PCP Nurse Practitioner Family
DX: T67.5XXA Heat exhaustion, unspecified, initial encounter (principal); W92.XXXA Exposure to excessive heat of man-made origin, initial encounter
CPT/HCPCS: 71045; 80053; 83690; 84703; 85025; 87631; 87635; 96361; 96374; 96375; 99284; J1885; J2405; J7030

== ENCOUNTER → 2022-01-18 11:14 | Outpatient (BNVA) | payer BC, MEDICAID, SELFPAY | PROVIDERS: PCP Nurse Practitioner Family; Visit Provider Psychiatry & Neurology Psychiatry | DX: F33.1 Major depressive disorder, recurrent, moderate (principal) | CPT/HCPCS: 99214 ==

== ENCOUNTER 2023-05-09 08:11 | Emergency (ER) | payer BC, MEDICAID, SELFPAY ==
[2023-05-09 08:16] VITALS: BP 133/101; PULSE 93; RESP 18; TEMP 36.8; O2SAT 98; BMI 32.6
[2023-05-09 08:23] VITALS: BP 126/92; PULSE 77; RESP 18; O2SAT 98
--- NOTE | 2023-05-09 08:26 | CT_ITS ---
WS: [id number] CT ABDOMEN AND PELVIS WITH CONTRAST HISTORY: LEFT lower quadrant pain with nausea for 3 days. TECHNIQUE: Imaging performed of the abdomen and pelvis with IV contrast. Single phase imaging of the abdomen. Coronal and sagittal reformats are submitted. All CT scans at [facility] use at [address] one of these dose optimization techniques: automated exposure control; mA and/or kV adjustment per patient size (includes targeted exams where dose is matched to clinical indication); or iterative re construction. IV CONTRAST: Omnipaque 350; 100 mL IV. Oral contrast: No DLP: 849.03 mGy.cm COMPARISON: 10/11/2021 Lower thorax: Lung bases are clear. Heart is normal size. No hiatal hernia. Liver/biliary system: Normal size with no intrahepatic dilatation. Gallbladder: Normal. No gallstones or wall thickening. No pericholecystic fluid. Pancreas: Normal size pancreas and pancreatic duct. No adjacent inflammation. Spleen: Normal size spleen. No mass or infarct. Adrenal glands: Normal. Right kidney: Normal. Left kidney: Normal. Aorta: Normal. Lymphadenopathy: None. Free fluid: None. GI tract: Congenital small bowel malrotation. 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 This has been previously described. No GI tract obst ruction. No evidence for appendicitis. Appendix in the midline of the pelvis. No adjacent inflammatio n. Abdominal wall: Fat containing umbilical hernia. Pelvis: Prior hysterectomy. No free fluid or adenopathy. Bones: Unremarkable. IMPRESSION: 1. No acute abdominal or pelvic abnormalities. 2. Normal appendix. 3. No GI tract obstruction. 4. 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 No obstructive pattern.
--- NOTE | 2023-05-09 08:27 | W.ED.ABDPA2 ---
HPI - Abdominal Pain General: Chief Complaint: Abdominal Pain Stated Complaint: left side pelvic pain, possible urogenital Time Seen by Provider: 05/09/23 08:14 Source: patient Mode of arrival: ambulatory Limitations: no limitations History of Present Illness: 38-year-old female states that she been having some left lower abdominal pain over the last 2 days. States it is a sharp pain, radiates to her groin. She had a hysterectomy in December she denies any vaginal bleeding denies any vaginal discharge she denies any dysuria. States pain sharp in nature rates it a 5 out of 10 she has had no vomiting or diarrhea Associated Symptoms: Denies chills, diarrhea, dysuria, fever(s), nausea and vomiting Review of Systems Const: Denies: fever(s), chills, body aches or change in appetite ENMT: Denies: throat pain or dental pain Card: Denies: chest pain Resp: Denies: dyspnea GI: Reports: abdominal pain; Denies: nausea, vomiting or diarrhea : Denies: dysuria Musc: Denies: neck pain or back pain Skin/Breast: Denies: rash Neuro: Denies: headache(s) PFSH ED PFSH: Medical History Kidney stone on right side No pertinent past medical history neghx: htn,dm,thyroid,dvt/pe PCP: Rosalba Patterson Surgical History Hx of tubal ligation (2014) Family History Family/Other Colon cancer Maternal Uncle--dx age unknown Mother Diabetes Brother Diabetes Hypertension Father Heart disease Denies family history of Ovarian cancer Hypercholesteremia Breast cancer Uterine cancer Thyroid disease Stroke Social History Smoking and tobacco status: former smoker Quit status (tobacco): has quit using tobacco Year quit tobacco: 2005 Second hand smoke exposure: Yes Smoking risk assessment/counseling performed?: No Alcohol intake: current Alcohol intake frequency: holidays/special occasions only Alcohol type: hard liquor Desire information about alcohol rehabilitation?: No Counseling given: No Substance/Drug Use: never Desire information about substance/drug rehabilitation?: No Counseling given: No Additional social history: Was a smoker about 15 years ago, smoked 1/2 PPD for 1 year. Denies any alcohol use. Denies any history of drug use. Physical Exam Const: COMMON NORMALS: no acute distress, patient oriented x3 and healthy appearing HENMT: COMMON NORMALS: normocephalic and atraumatic HEAD & SCALP: normocephalic and atraumatic Neck/C-Spine: COMMON NORMALS: full ROM and supple Chest: COMMONS NORMALS: normal inspection of the chest and normal palpation of entire chest wall Resp: COMMON NORMALS: normal respiratory effort, No retractions, No use of accessory muscles and clear to auscultation bilaterally AUSCULTATION: clear to auscultation bilaterally Cardio: COMMON NORMALS: regular rate, regular rhythm and No murmurs present (Cardio) RATE: regular rate RHYTHM: regular rhythm GI: COMMON NORMALS: Normal to inspection, nondistended, normoactive bowel sounds present, Soft to palpation and no masses PALPATION: Yes Soft to palpation and Yes Tenderness to palpation present (GI) Details: LLQ Extremity: COMMON NORMALS: normal to inspection and full ROM Neuro: COMMON NORMALS: patient oriented x3, moves all extremities and no focal motor deficits Psych: COMMON NORMALS: mental status grossly normal, Normal thought process present and cooperative THOUGHT PROCESS: Normal thought process present Skin: COMMON NORMALS: no rashes or lesions noted and no wounds GENERAL SKIN EXAM: no rashes or lesions noted Course Vital Signs: Vital signs: Vital Signs Temperature 98.3 F 05/09/23 08:16 Pulse Rate 77 05/09/23 08:23 Respiratory Rate 18 05/09/23 09:19 Blood Pressure 126/92 05/09/23 08:23 Pulse Oximetry 93 05/09/23 09:19 Oxygen Delivery Me thod Room Air 05/09/23 08:23 MDM - Abdominal Pain Medical Decision Making Patient presents here with abdominal pain exam here is benign at discharge CT abdomen blood work are all normal she has no UTI she is stable for discharge she is to follow-up with PCP and return if worsening. Medical Records I reviewed the patient's medical records. Lab Data I reviewed the patient's lab results. 05/09/23 08:32 05/09/23 08:32 Labs/Radiology: Laboratory Results WBC 7.22 10^3/uL (3.29-11.43) 05/09/23 08:32 RBC 4.75 10^6/uL (3.85-5.65) 05/09/23 08:32 Hgb 14.10 g/dL (11.27-16.99) 05/09/23 08:32 Hct 42.5 % (36-47) 05/09/23 08:32 MCV 89.5 fl (85-98) 05/09/23 08:32 MCH 29.7 pg (27-33) 05/09/23 08:32 MCHC 33.2 g/dL (30-55) 05/09/23 08:32 RDW 13.2 % (12.1-15.1) 05/09/23 08:32 Plt Count 256 10^3/cmm (157-399) 05/09/23 08:32 MPV 11.4 fL (7.4-10.4) H 05/09/23 08:32 Neut % (Auto) 61.4 % 05/09/23 08:32 Lymph % (Auto) 29.1 % 05/09/23 08:32 [place] % (Auto) 6.4 % 05/09/23 08:32 Eos % (Auto) 2.4 % 05/09/23 08:32 Baso % (Auto) 0.4 % 05/09/23 08:32 Neut # (Auto) 4.44 10^3/uL (1.8-7.7) 05/09/23 08:32 Lymph # (Auto) 2.1 10^3/uL (0.8-4.8) 05/09/23 08:32 [place] # (Auto) 0.5 10^3/uL (0.2-0.9) 05/09/23 08:32 Eos # (Auto) 0.2 10^3/uL (0.0-0.8) 05/09/23 08:32 Baso # (Auto) 0.0 10^3/uL (0.0-0.1) 05/09/23 08:32 Nucleated RBC % (auto) 0 % 05/09/23 08:32 Nucleated RBCs # 0.0 /100WBC 05/09/23 08:32 Sodium 140 mmol/L (136-145) 05/09/23 08:32 Potassium 4.1 mmol/L (3.5-5.1) 05/09/23 08:32 Chloride 103 mmol/L (98-107) 05/09/23 08:32 Carbon Dioxide 27 mmol/L (22-29) 05/09/23 08:32 Anion Gap 14.1 (5-19) 05/09/23 08:32 BUN 12 mg/dL (6-20) 05/09/23 08:32 Creatinine 0.8 mg/dL (0.5-0.9) 05/09/23 08:32 GFR Calculation 80.7 mL/min (90-130) L 05/09/23 08:32 Glucose 105 mg/dL (65-115) 05/09/23 08:32 Calculated Osmolality 290 mOsm/kg (285-295) 05/09/23 08:32 Calcium 9.6 mg/dL (8.5-10.5) 05/09/23 08:32 Total Bilirubin 0.4 mg/dL (0.15-1.2) 05/09/23 08:32 AST 15 U/L (0-32) 05/09/23 08:32 ALT 18 U/L (0-33) 05/09/23 08:32 Alkaline Phosphatase 86 U/L (35-105) 05/09/23 08:32 Total Protein 7.8 g/dL (6.6-8.7) 05/09/23 08:32 Albumin 4.7 g/dL (3.5-5.2) 05/09/23 08:32 Globulin 3.1 g/dL (1.3-4.6) 05/09/23 08:32 Lipase 46 U/L (13-60) 05/09/23 08:32 Urine Color Yellow (Yellow) 05/09/23 08:32 Urine Appearance Clear (CLEAR) 05/09/23 08:32 Urine pH 5 (5-7) 05/09/23 08:32 Ur Specific [place] 1.020 (1.005-1.030) 05/09/23 08:32 Urine Protein Neg (Negative) 05/09/23 08:32 Urine Glucose (UA) Norm (Normal) 05/09/23 08:32 Urine Ketones Negative (Negative) 05/09/23 08:32 Urine Blood Neg (Negative) 05/09/23 08:32 Urine Nitrate Negative (Negative) 05/09/23 08:32 Urine Bilirubin Neg (Negative) 05/09/23 08:32 Urine Urobilinogen Norm mg/dL (Negative) 05/09/23 08:32 Ur Leukocyte Esterase Negative (Negative) 05/09/23 08:32 Discharge Plan Discharge Patient Disposition: Home Clinical Impression: Abdominal pain Condition: Stable Prescriptions: New dicyclomine 10 mg capsule 10 mg PO TID PRN (Reason: abdominal pain) Qty: 20 0RF No Action estradiol 0.0375 mg/24 hr Patch Semiweekly See Rx Instructions .ROUTE .COMPLEX Rx Instructions: Apply 1 patch twice daily. Discharge Orders: Discharge ED (Routine); Ordered 05/09/23 Ordered By: Maritza Dang Referrals: Chelsi Robertson SANDWICH COUNTER ATTENDANT [Primary Care Provider] - 1-3 days Discharge Diet: Advance as tolerated Discharge Activity: Resume usual activity Patient Instructions: Abdominal Pain (ED) Coding Level of Care Code ED Epic [employer] Analyst for Eloina Hannon
[2023-05-09 08:46] LABS: Basophils % 0.4 %; Eosinophils # 0.2 10^3/uL (0.0-0.8); Eosinophils % 2.4 %; Hematocrit 42.5 % (36-47); Lymphocytes # 2.1 10^3/uL (0.8-4.8); Lymphocytes % 29.1 %; Mean Corpuscular HGB Conc 33.2 g/dL (30-55); Mean Corpuscular Hemoglobin 29.7 pg (27-33); Mean Corpuscular Volume 89.5 fl (85-98); Mean Platelet Volume 11.4 fL (7.4-10.4); Monocytes # 0.5 10^3/uL (0.2-0.9); Monocytes % 6.4 %; Neutrophils # 4.44 10^3/uL (1.8-7.7); Neutrophils % 61.4 %; Nucleated Red Blood Cells % 0 %; Platelet Count 256 10^3/cmm (157-399); Red Blood Count 4.75 10^6/uL (3.85-5.65); Red Cell Distribution Width 13.2 % (12.1-15.1); White Blood Count 7.22 10^3/uL (3.29-11.43)
[2023-05-09 08:49] LABS: Add Urine Microscopic? NO; Charge for UA Resulting for Rev
[2023-05-09] MEDS: iohexol 350 mg/mL 500 mL Btl (per mL) IV (08:52)
[2023-05-09 08:53] LABS: Bilirubin Urine Neg (Negative); Blood Urine Neg (Negative); Glucose Urine UA Norm (Normal); Ketones Urine Negative (Negative); Leukocyte Esterase Urine Negative (Negative); Nitrate Urine Negative (Negative); Protein Urine Neg (Negative); Urine Appearance Clear (CLEAR); Urine Color Yellow (Yellow); Urobilinogen Urine Norm (Negative); pH Urine 5 (5-7)
[2023-05-09 09:01] LABS: Alanine Aminotransferase 18 U/L (0-33); Albumin Level 4.7 g/dL (3.5-5.2); Alkaline Phosphatase 86 U/L (35-105); Anion Gap 14.1 (5-19); Aspartate Amino Transferase 15 U/L (0-32); Blood Urea Nitrogen 12 mg/dL (6-20); Calcium 9.6 mg/dL (8.5-10.5); Carbon Dioxide 27 mmol/L (22-29); Chloride 103 mmol/L (98-107); Globulin 3.1 g/dL (1.3-4.6); Glomerular Filtration Rate 80.7 mL/min (90-130); Glucose 105 mg/dL (65-115); Lipase 46 U/L (13-60); Osmolality Calculated 290 mOsm/kg (285-295); Potassium 4.1 mmol/L (3.5-5.1); Sodium 140 mmol/L (136-145); Total Bilirubin 0.4 mg/dL (0.15-1.2); Total Protein 7.8 g/dL (6.6-8.7)
[2023-05-09 09:19] VITALS: RESP 18; O2SAT 93
[2023-05-09] MEDS: morphine 4 mg/mL SDV 1 mL IVP (09:19)
[2023-05-09] MEDS: ondansetron 2 mg/ML SDV 2 mL 4 MG IVP (09:19)
== END 2023-05-09 10:03 | disposition home or self-care (01) ==
PROVIDERS: Emergency Provider Emergency Medicine; PCP Nurse Practitioner Family
DX: R10.32 Left lower quadrant pain (principal); Z87.891 Personal history of nicotine dependence
CPT/HCPCS: 74177; 80053; 81003; 83690; 85025; 96374; 96375; 99285; J2270; J2405; Q9967

== ENCOUNTER 2023-06-03 13:48 | Emergency (ER) | payer MEDICAID, SELFPAY ==
[2023-06-03 13:54] VITALS: BP 120/89; PULSE 94; RESP 17; TEMP 36.4; O2SAT 96; BMI 31.1
--- NOTE | 2023-06-03 13:59 | ED_ITS ---
HPI - Female Genitourinary General: Chief complaint: Urogenital-Female Stated complaint: abd pain after hysterectomy Time Seen by Provider: 06/03/23 13:51 Source: patient Mode of arrival: ambulatory Limitations: no limitations History of Present Illness: Patient is a 38-year-old female who presents the emergency room for vaginal bleeding. Patient states that she was having intercourse last night and developed vaginal bleeding at that time. Reports that she did have a hysterectomy back in December 2022 at [facility] where she sees her [facility]. States that she has filled 1 pad over the last 12 hours. Denies any fever, abdominal pain, dysuria. Reports pelvic pain. Pain 5/10 on pain scale. No other complaints at this time. MD elicited complaint: vaginal bleeding and pelvic pain Severity scale (1-10): 5 Associated symptoms: Deny abdominal pain, headache(s) or nausea Review of Systems Const: Denies: fever(s) or chills Eyes: Denies: change in vision ENMT: Denies: throat pain or mouth pain Card: Denies: chest pain or palpitations Resp: Denies: dyspnea or productive cough GI: Denies: abdominal pain, nausea or vomiting : Reports: vaginal bleeding and pelvic pain; Denies: flank pain Musc: Denies: neck pain or back pain Skin/Breast: Denies: rash or pruritus Neuro: Denies: headache(s) or numbness in extremities Psych: Denies: anxiety PFSH ED PFSH: Medical History Kidney stone on right side No pertinent past medical history neghx: htn,dm,thyroid,dvt/pe PCP: Rosalba Patterson Surgical History Hx of tubal ligation (2014) Family History Family/Other Colon cancer Maternal Uncle--dx age unknown Mother Diabetes Brother Diabetes Hypertension Father Heart disease Denies family history of Ovarian cancer Hypercholesteremia Breast cancer Uterine cancer Thyroid disease Stroke Social History Smoking and tobacco status: former smoker Quit status (tobacco): has quit using tobacco Year quit tobacco: 2005 Second hand smoke exposure: Yes Smoking risk assessment/counseling performed?: No Alcohol intake: current Alcohol intake frequency: holidays/special occasions only Alcohol type: hard liquor Desire information about alcohol rehabilitation?: No Counseling given: No Substance/Drug Use: never Desire information about substance/drug rehabilitation?: No Counseling given: No Additional social history: Was a smoker about 15 years ago, smoked 1/2 PPD for 1 year. Denies any alcohol use. Denies any history of drug use. Physical Exam Const: COMMON NORMALS: patient oriented x3 and alert ORIENTATION/CONSCIOUSNESS: Yes awake HENMT: COMMON NORMALS: normocephalic HEAD & SCALP: normocephalic Eye: COMMON NORMALS: Equal, round and reactive pupils present and EOMs intact bilaterally PUPIL: Yes Equal, round and reactive pupils present Neck/C-Spine: COMMON NORMALS: full ROM and no JVD Lymph: LYMPHATIC: no lymphadenopathy noted Chest: CHEST: Yes Symmetrical chest wall rise Resp: COMMON NORMALS: normal respiratory effort and clear to auscultation bilaterally EFFORT & INSPECTION: Yes symmetric chest movement AUSCULTATION: clear to auscultation bilaterally Cardio: COMMON NORMALS: no JVD and S1 normal heart sound present HEART SOUNDS: S1 normal heart sound present GI: COMMON NORMALS: Normal to inspection, nondistended, normoactive bowel sounds present AUSCULTATION: Yes normoactive bowel sounds : OTHER: normal vaginal exam no bleeding Extremity: COMMON NORMALS: normal to inspection Neuro: COMMON NORMALS: patient oriented x3 SENSORIUM/ORIENTATION: Yes alert Course Vital Signs: Vital signs: Vital Signs Temperature 97.6 F 06/03/23 13:54 Pulse Rate 94 06/03/23 13:54 Respiratory Rate 18 06/03/23 14:42 Blood Pressure 120/89 06/03/23 13:54 Pulse Oximetry 96 06/03/23 13:54 Oxygen Delivery Me thod Room Air 06/03/23 13:54 MDM - Female Medical Decision Making Patient presents for pelvic pain along with some vaginal bleeding her exam here is benign she has no bleeding on pelvic exam CT scan is normal 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 Medical Records I reviewed the patient's medical records. Lab Data I reviewed the patient's lab results. 06/03/23 14:10 06/03/23 14:10 Laboratory Results WBC 8.11 10^3/uL (3.29-11.43) 06/03/23 14:10 RBC 4.81 10^6/uL (3.85-5.65) 06/03/23 14:10 Hgb 14.30 g/dL (11.27-16.99) 06/03/23 14:10 Hct 43.1 % (36-47) 06/03/23 14:10 MCV 89.6 fl (85-98) 06/03/23 14:10 MCH 29.7 pg (27-33) 06/03/23 14:10 MCHC 33.2 g/dL (30-55) 06/03/23 14:10 RDW 13.0 % (12.1-15.1) 06/03/23 14:10 Plt Count 260 10^3/cmm (157-399) 06/03/23 14:10 MPV 11.4 fL (7.4-10.4) H 06/03/23 14:10 Neut % (Auto) 70.1 % 06/03/23 14:10 Lymph % (Auto) 22.8 % 06/03/23 14:10 [place] % (Auto) 5.4 % 06/03/23 14:10 Eos % (Auto) 1.1 % 06/03/23 14:10 Baso % (Auto) 0.4 % 06/03/23 14:10 Neut # (Auto) 5.68 10^3/uL (1.8-7.7) 06/03/23 14:10 Lymph # (Auto) 1.9 10^3/uL (0.8-4.8) 06/03/23 14:10 [place] # (Auto) 0.4 10^3/uL (0.2-0.9) 06/03/23 14:10 Eos # (Auto) 0.1 10^3/uL (0.0-0.8) 06/03/23 14:10 Baso # (Auto) 0.0 10^3/uL (0.0-0.1) 06/03/23 14:10 Nucleated RBC % (auto) 0 % 06/03/23 14:10 Nucleated RBCs # 0.0 /100WBC 06/03/23 14:10 Sodium 133 mmol/L (136-145) L 06/03/23 14:10 Potassium 3.9 mmol/L (3.5-5.1) 06/03/23 14:10 Chloride 97 mmol/L (98-107) L 06/03/23 14:10 Carbon Dioxide 29 mmol/L (22-29) 06/03/23 14:10 Anion Gap 10.9 (5-19) 06/03/23 14:10 BUN 10 mg/dL (6-20) 06/03/23 14:10 Creatinine 0.9 mg/dL (0.5-0.9) 06/03/23 14:10 GFR Calculation 70.5 mL/min (90-130) L 06/03/23 14:10 Glucose 113 mg/dL (65-115) 06/03/23 14:10 Calculated Osmolality 276 mOsm/kg (285-295) L 06/03/23 14:10 Calcium 9.5 mg/dL (8.5-10.5) 06/03/23 14:10 Total Bilirubin 0.4 mg/dL (0.15-1.2) 06/03/23 14:10 AST 16 U/L (0-32) 06/03/23 14:10 ALT 17 U/L (0-33) 06/03/23 14:10 Alkaline Phosphatase 90 U/L (35-105) 06/03/23 14:10 Total Protein 8.0 g/dL (6.6-8.7) 06/03/23 14:10 Albumin 4.5 g/dL (3.5-5.2) 06/03/23 14:10 Globulin 3.5 g/dL (1.3-4.6) 06/03/23 14:10 Lipase 35 U/L (13-60) 06/03/23 14:10 All radiology interpretation(s) finalized by discharge Discharge Plan Discharge Patient Disposition: Home Clinical Impression: Pelvic pain Condition: Stable Prescriptions: No Action estradiol 0.0375 mg/24 hr Patch Semiweekly See Rx Instructions .ROUTE .COMPLEX Rx Instructions: Apply 1 patch twice weekly. Apply on Saturday and replace on . Discharge Orders: Discharge ED (Routine); Ordered 06/03/23 Ordered By: Maritza Dang Referrals: Chelsi Robertson FNP [Primary Care Provider] - 1-3 days Discharge Diet: Advance as tolerated Discharge Activity: Resume usual activity Patient Instructions: Pelvic Pain (ED) Coding Level of Care Code ED Executive Compensation Analyst for Eloina Hannon
[2023-06-03 14:14] LABS: Basophils % 0.4 %; Eosinophils # 0.1 10^3/uL (0.0-0.8); Eosinophils % 1.1 %; Hematocrit 43.1 % (36-47); Lymphocytes # 1.9 10^3/uL (0.8-4.8); Lymphocytes % 22.8 %; Mean Corpuscular HGB Conc 33.2 g/dL (30-55); Mean Corpuscular Hemoglobin 29.7 pg (27-33); Mean Corpuscular Volume 89.6 fl (85-98); Mean Platelet Volume 11.4 fL (7.4-10.4); Monocytes # 0.4 10^3/uL (0.2-0.9); Monocytes % 5.4 %; Neutrophils # 5.68 10^3/uL (1.8-7.7); Neutrophils % 70.1 %; Nucleated Red Blood Cells % 0 %; Platelet Count 260 10^3/cmm (157-399); Red Blood Count 4.81 10^6/uL (3.85-5.65); White Blood Count 8.11 10^3/uL (3.29-11.43)
--- NOTE | 2023-06-03 14:15 | CT_ITS ---
WS: [id number] CT ABDOMEN AND PELVIS WITH CONTRAST HISTORY: abd pain/vag bleed TECHNIQUE: Imaging performed of the abdomen and pelvis with IV contrast. Single phase imaging of the abdomen. Coronal and sagittal reformats are submitted. All CT scans at [facility] use at [address] one of these dose optimization techniques: automated exposure control; mA and/or kV adjustment per patient size (includes targeted exams where dose is matched to clinical indication); or iterative re construction. IV CONTRAST: Omnipaque 350; 100 mL IV. Oral contrast: No DLP: 759.25 mGy.cm COMPARISON: 05/09/2023 Lower thorax: Lung bases are clear. Heart is normal size. Small hiatal hernia. Liver/biliary system: Normal size with no intrahepatic dilatation. Gallbladder: Normal. No gallstones or wall thickening. No pericholecystic fluid. Pancreas: Normal size pancreas and pancreatic duct. No adjacent inflammation. Spleen: Normal size spleen. No mass or infarct. Adrenal glands: Normal. Right kidney: Normal. Left kidney: Normal. Aorta: Normal. Lymphadenopathy: None. Free fluid: None. GI tract: No obstruction. Patient has a known congenital small bowel malrotation. No appendicitis. A few scattered diverticula. No acute diverticulitis. Abdominal wall: Fat containing umbilical hernia. Pelvis: Prior hysterectomy. No midline mass. No free fluid or adenopathy. Bones: Unremarkable. IMPRESSION: 1. No acute abdominal or pelvic abnormalities. 2. Prior hysterectomy. No mass or abnormality noted at the hysterectomy site. 3. Patient has a known congenital small bowel malrotation. 4. No free air.
[2023-06-03 14:37] LABS: Alanine Aminotransferase 17 U/L (0-33); Albumin Level 4.5 g/dL (3.5-5.2); Alkaline Phosphatase 90 U/L (35-105); Anion Gap 10.9 (5-19); Aspartate Amino Transferase 16 U/L (0-32); Blood Urea Nitrogen 10 mg/dL (6-20); Calcium 9.5 mg/dL (8.5-10.5); Carbon Dioxide 29 mmol/L (22-29); Chloride 97 mmol/L (98-107); Globulin 3.5 g/dL (1.3-4.6); Glomerular Filtration Rate 70.5 mL/min (90-130); Glucose 113 mg/dL (65-115); Lipase 35 U/L (13-60); Osmolality Calculated 276 mOsm/kg (285-295); Potassium 3.9 mmol/L (3.5-5.1); Sodium 133 mmol/L (136-145); Total Bilirubin 0.4 mg/dL (0.15-1.2)
[2023-06-03 14:42] VITALS: RESP 18
[2023-06-03] MEDS: ondansetron 2 mg/ML SDV 2 mL 4 MG IVP (14:42)
[2023-06-03] MEDS: morphine 4 mg/mL SDV 1 mL IVP (14:42)
[2023-06-03] MEDS: iohexol 350 mg/mL 500 mL Btl (per mL) IV (14:50)
[2023-06-03 15:15] LABS: Urine Appearance SL Hazy (CLEAR); Urine Color Yellow (Yellow); pH Urine 5 (5-7)
[2023-06-03 15:16] LABS: Add Urine Microscopic? YES; Bacteria Urine TRACE /hpf; Bilirubin Urine 1+ (Negative); Blood Urine Neg (Negative); Glucose Urine UA Norm (Normal); Ketones Urine Negative (Negative); Leukocyte Esterase Urine Negative (Negative); Mucus Urine 2+ /hpf; Nitrate Urine Negative (Negative); Protein Urine Neg (Negative); RBC Urine 0-4 /hpf (0-2); Specific Gravity, Urine 1.025 (1.005-1.030); Urobilinogen Urine 4 mg/dL (Negative); WBC Urine 0-4 /hpf (0-5)
[2023-06-03 15:17] LABS: Add Urine Culture? No
[2023-06-03 15:28] VITALS: BP 136/73; PULSE 80; O2SAT 95
== END 2023-06-03 15:29 | disposition home or self-care (01) ==
PROVIDERS: Emergency Provider Emergency Medicine; PCP Nurse Practitioner Family
DX: R10.2 Pelvic and perineal pain (principal); Z87.891 Personal history of nicotine dependence
CPT/HCPCS: 36415; 74177; 80053; 81001; 83690; 85025; 96374; 96375; 99285; J2270; J2405; Q9967

== ENCOUNTER → 2023-10-03 11:41 | Outpatient (BNVA) | payer MEDICAID, SELFPAY | PROVIDERS: PCP Nurse Practitioner Family; Visit Provider Nurse Practitioner Family | DX: M17.12 Unilateral primary osteoarthritis, left knee (principal) | CPT/HCPCS: 73562 ==